=== PATIENT | male | born 1990 | race American Indian/Alaskan Native ===

== ENCOUNTER 2017-02-11 15:51 | Emergency (ER) | payer SELFPAY ==
[2017-02-11 15:59] VITALS: BP 122/80
== END 2017-02-11 21:45 | disposition left against medical advice (07) ==
LOC: ED 15:51
DX: Z53.21 Procedure and treatment not carried out due to patient leaving prior to being seen by health care provider (principal)

== ENCOUNTER 2017-05-21 09:19 | Emergency (ER) | payer SELFPAY ==
[2017-05-21 09:52] VITALS: BP 105/71
--- NOTE | 2017-05-21 12:58 | Emergency Department Report ---
Abscess Boil HPI - HPI Chief Complaint: Skin/Abscess/Foreign Body Stated Complaint: CYST ON JAW Time Seen by Provider: 05/21/17 12:39 Duration: >1 Week Location: Other (cheek right) Severity: None History: No Fever, No Pain, No Purulent Drainage, No Numbness, No Foreign Body, No Previous History, No Insect Bite HPI: Pt is a 26 y male presents cc of nontender mass to his right cheek x 2-3 weeks. Pt states he shaves but tries not to use a clipper. He denies fever, chills, n/v or any othe rsymptoms Home Medications: Previous Rx's Medication Instructions Recorded Last Taken Type Sulfamethoxazole/Trimethoprim 1 each PO BID #14 tablet 05/21/17 Unknown Rx [Bactrim DS TAB] Allergies/Adverse Reactions: Allergies Allergy/AdvReac Type Severity Reaction Status Date / Time No Known Allergies Allergy Unverified 02/11/17 15:59 ED Review of Systems ROS: Stated complaint: CYST ON JAW Other details as noted in HPI Constitutional: denies: chills, fever Eyes: denies: eye pain, eye discharge, vision change ENT: denies: ear pain, throat pain, congestion Respiratory: denies: cough, shortness of breath, wheezing Cardiovascular: denies: chest pain, palpitations Endocrine: no symptoms reported Gastrointestinal: denies: abdominal pain, nausea, diarrhea Genitourinary: denies: urgency, dysuria Musculoskeletal: denies: back pain, joint swelling, arthralgia Skin: denies: rash, lesions, pruritus Neurological: denies: headache, weakness, numbness, paresthesias Psychiatric: denies: anxiety, depression Hematological/Lymphatic: denies: easy bleeding, easy bruising ED Past Medical Hx - Past Medical History Previous Medical History?: No - Surgical History Past Surgical History?: No Additional Surgical History: hernia repair? - Social History Smoking Status: Current Every Day Smoker Substance Use Type: Alcohol, Marijuana, Non Opiate Pain - Medications Home Medications: Home Medications Medication Instructions Recorded Confirmed Last Taken Type Sulfamethoxazole/Trimethoprim 1 each PO BID #14 tablet 05/21/17 Unknown Rx [Bactrim DS TAB] ED Abscess Boil Physical Exam - Exam General: Vital signs noted. No distress. Alert and acting appropriately. Front/Back of Body, Lg (Color): 1 - 3-4 cm mobile mass, non tender, non flac, non erythematous Size: 3 cm Exam: Yes Normal Neurologic Exam, Yes Normal Circulation, No Tenderness, No Fluctuance, No Surrounding Cellulites/Erythema, No Lymphangitis, No Crepitation , No Heart Murmur Exam: Nontender, 3-4 cm nonerythematous, nonfluctuant mobile mass on right lower cheek region ED Course Vital Signs 05/21/17 09:49 Temperature 98.4 F Pulse Rate 76 Respiratory 18 Rate Blood Pressure 105/71 O2 Sat by Pulse 99 Oximetry Critical care attestation.: If time is entered above; I have spent that time in minutes in the direct care of this critically ill patient, excluding procedure time. ED Medical Decision Making - Medical Decision Making 26 y o male presenst with lipoma vs carbuncle of the cheek ED Course: I discussed with pt to trial of antibiotics if carbuncle, Suggested to pt to apply warm compress daily. I discussed with pt to follow up with PCP, Pt is stable, vital signs normal, no acute or respiratory distress. ED Disposition Clinical Impression: Carbuncle and furuncle of face, Lipoma of skin and subcutaneous tissue of face Disposition: - TO HOME OR SELFCARE Is pt being admited?: No Does the pt Need Aspirin: No Condition: Stable Instructions: Lipoma (ED), Furunculosis and Carbunculosis (ED) Additional Instructions: Make sure to follow up with the primary care physician as discussed. Take all your medications as you've been prescribed. If you have any worsening symptoms or develop new symptoms please return to ED immediately. Prescriptions: Sulfamethoxazole/Trimethoprim [Bactrim DS TAB] 1 each PO BID #14 tablet Referrals: PRIMARY CARE,MD [Primary Care Provider] - 3-5 Days [facility] [Outside] - 3-5 Days [facility] [Outside] - 3-5 Days [facility] [Outside] - 3-5 Days [facility] [Outside] - 3-5 Days Forms: Work/School Release Form(ED) Time of Disposition: 13:39
== END 2017-05-21 13:43 | disposition home or self-care (01) ==
LOC: ED 09:19
DX: L02.03 Carbuncle of face (principal); D17.0 Benign lipomatous neoplasm of skin and subcutaneous tissue of head, face and neck; F17.200 Nicotine dependence, unspecified, uncomplicated; F12.10 Cannabis abuse, uncomplicated
CPT/HCPCS: 99282